=== PATIENT | male | born 1955 | race Caucasian/White ===

== ENCOUNTER 2020-12-27 14:32 | Emergency (ER) | payer SELFPAY ==
--- NOTE | 2020-12-27 14:34 | ED.MALEGU ---
HPI - Male Genitourinary General Chief complaint: Urogenital-Male Stated complaint: STD test Time Seen by Provider: 12/27/20 14:35 Source: patient and RN notes reviewed History of Present Illness HPI Narrative: Patient is 65-year-old male who presents the urgent care with complaints of possible STD. Patient states that he has had unprotected sex with a new partner approximately 1 week ago and within the last 2 days he has had pus from the penis . Patient states the tip of his penis is also sore. Denies any lesions on the penis. Denies of any known contact with STD and has not spoke to his partner regarding his symptoms. Patient also reports of some burning with urination. Denies of any suprapubic pressure, urinary frequency or urgency. States that he has had chlamydia in the past and the symptoms feel about the same . No other acute complaints. No acute distress noted. Patient aware of the plan of care. Some parts of this dictation were generated by voice recognition software and may contain typographical and/or grammatical inaccuracies. Related Data Home Medications Medication Instructions Recorded Confirmed metoprolol tartrate 25 mg PO DAILY 12/27/20 12/27/20 Allergies Allergy/AdvReac Type Severity Reaction Status Date / Time tramadol Allergy Itching Verified 12/27/20 14:51 Review of Systems Review of Systems: CONSTITUTIONAL: Denies fever, chills, or sweats. EYES: Denies visual changes, redness, or discharge. ENT: Denies rhinorrhea, congestion, sore throat, or otalgia. CARDIOVASCULAR: Denies chest pain, palpitations, or edema. RESPIRATORY: Denies cough or dyspnea. GASTROINTESTINAL: Denies abdominal pain, nausea, vomiting, or diarrhea. GENITOURINARY: Reports of penile discharge and dysuria SKIN: Denies rash or itching. MUSCULOSKELETAL: Denies back pain, joint pain, or myalgia. NEUROLOGIC: Denies headache, numbness, or weakness. All other systems reviewed are negative, except as documented in HPI. PMFSH Comments At the time of my signature, I reviewed and agree with the nursing past medical, surgical, social, and family history. There is no relevant family history pertinent to the patient complaint. Exam Narrative: GENERAL: This is a well-nourished, well-developed patient, in no apparent distress. HEAD: normocephalic, atraumatic. EYES: PERRL. Sclera clear/white. Vision is grossly intact. EARS: External ears normal NOSE: External nose normal with no obvious nasal discharge, nares without redness, no rhinorrhea. THROAT: Mucous membranes moist NECK: Neck supple CARDIOVASCULAR: Regular rate and rhythm without murmurs, gallops, or rubs. RESPIRATORY: Clear to auscultation. Breath sounds equal bilaterally. No wheezes, rales, or rhonchi. : Deferred penile exam SKIN: warm, intact with no suspicious lesions or rash, good texture and turgor. NEURO: awake, alert, and oriented to person, place and time. There were no obvious focal neurologic abnormalities. EXTREMITIES: No clubbing, cyanosis, or edema. BACK: Negative bilateral CVA tenderness Course Vital Signs Vital signs: Vital Signs Temperature 98.1 F 12/27/20 14:41 Pulse Rate 81 12/27/20 14:41 Respiratory Rate 20 12/27/20 14:41 Blood Pressure 147/97 H 12/27/20 14:41 Pulse Oximetry 100 12/27/20 14:41 Temperature 98.1 F 12/27/20 14:52 Pulse Rate 81 12/27/20 14:52 Respiratory Rate 20 12/27/20 14:52 Blood Pressure 147/97 H 12/27/20 14:52 Pulse Oximetry 100 12/27/20 14:52 Reviewed-patient is informed that they may have pre-hypertension or hypertension based on a blood pressure reading in the department. I recommend the patient call the primary care provider listed on their discharge instructions or a physician of their choice this week to arrange follow-up for further evaluation of possible pre-hypertension or hypertension. MDM - Male Genitourinary MDM Narrative Medical decision making narrative: Advised the patient to complete
[2020-12-27 14:41] VITALS: BP 147/97; PULSE 81; RESP 20; TEMP 36.7; O2SAT 100
[2020-12-27 14:52] VITALS: BP 147/97; PULSE 81; RESP 20; TEMP 36.7; O2SAT 100
== END 2020-12-27 15:14 | disposition home or self-care (01) ==
PROVIDERS: Emergency Provider Nurse Practitioner Family
DX: R36.9 Urethral discharge, unspecified (principal); I10 Essential (primary) hypertension
CPT/HCPCS: 81003; 87491; 87591; 87661; 99203; G0463

== ENCOUNTER 2020-12-31 19:35 | Emergency (ER) | payer SELFPAY ==
--- NOTE | 2020-12-31 19:39 | ED.MALEGU ---
HPI - Male Genitourinary General Stated complaint: std shot Source: patient and RN notes reviewed Mode of arrival: ambulatory Limitations: no limitations History of Present Illness HPI Narrative: 65-year-old male presents for treatment of gonorrhea. Was seen in this clinic on 12/27/2020 and tested for gonorrhea. Did not choose to receive the ceftriaxone injection at that time, when advised of the positive results he chose to return and receive the treatment. Denies any change in symptoms. Related Data Home Medications Medication Instructions Recorded Confirmed metoprolol tartrate 25 mg PO DAILY 12/27/20 12/27/20 Allergies Allergy/AdvReac Type Severity Reaction Status Date / Time tramadol Allergy Itching Verified 12/31/20 19:43 Review of Systems Review of Systems: CONSTITUTIONAL: Denies malaise, chills, sweats, or fever. GASTROINTESTINAL: Denies abdominal pain, nausea, vomiting, diarrhea, bloody, or mucous stools. GENITOURINARY: Reports dysuria and penile discharge All systems reviewed & are unremarkable except as noted in HPI and below PMFSH Comments At time of signature, agree with nursing past medical, surgical, social and family history. There is no relevant family history pertinent to the presenting complaint Exam Narrative: GENERAL: Well-appearing, well-nourished, and in no acute distress. HEAD: Normocephalic. EYES: PERRLA, conjunctivae clear. NECK: Supple. CHEST: Clear to auscultation. No respiratory distress. HEART: Regular rate and rhythm. SKIN: Warm, dry NEURO: Alert and oriented x3. PSYCH: Normal mood and affect Course Course Emergency Course: Patient is aware of diagnosis, understands and agrees to treatment plan. Anticipatory guidance given. Patient agrees to follow-up as directed and is aware of reasons to seek care at the emergency department. Portions of this record may have been created with voice recognition software Vital Signs Vital signs: Reviewed. MDM - Male Genitourinary MDM Narrative Medical decision making narrative: Exam findings show no acute concerns or changes; patient is non-toxic appearing and is in no distress. Patient is appropriate for outpatient treatment and follow-up. Critical Care Time Critical Care Time Critical Care Time: No Discharge Plan Discharge Clinical Impression: Acute gonorrhea of genitourinary tract Patient Disposition: Home, Self-Care Condition: Stable Instructions: Gonorrhea (ED) Additional Instructions: You have tested positive for gonorrhea, and received treatment through an intramuscular injection. It is very important that you avoid unprotected intercourse during treatment and for 7 days AFTER TREATMENT is complete and until your partner(s) have been treated. Please encourage your partner(s) to seek testing and treatment. Your chlamydia test was negative, ear results for trichomoniasis are still pending. If trichomoniasis is positive you will receive a phone call and additional antibiotic will be sent to your pharmacy. Continue previously prescribed doxycycline until all the pills are gone. When you have been exposed to sexually transmitted infections, it is important that you seek comprehensive testing, since we do not provide testing for all sexually transmitted infections. Some infections can have no symptoms, but cause serious health problems. Contact your health care provider or report to the emergency department if: You have genital swelling or pain, or unusual bleeding. You have joint pain, rash, swollen lymph nodes or night sweats. You are severe abdominal pain. You have a fever. Symptoms do not go away or they get worse even after treatment. You have bleeding or pain during sex. Prescriptions: No Action metoprolol tartrate 25 mg Tablet 25 mg PO DAILY RF: 0 doxycycline monohydrate 100 mg capsule 100 mg PO BID Qty: 20 RF: 0 Follow-up/Referrals: PHYSICIAN,RANGE AIDE [Primary Care Provider] - Time of Dispos
[2020-12-31 19:40] VITALS: BP 162/97; PULSE 87; RESP 18; TEMP 37.1; O2SAT 100
[2020-12-31] MEDS: LIDOCAINE HCL 1% LOCAL INJ 20 ML VIAL INFILTRATE (19:56)
[2020-12-31] MEDS: cefTRIAXone 250 MG VIAL 500 MG IM (19:56)
== END 2020-12-31 20:07 | disposition home or self-care (01) ==
PROVIDERS: Emergency Provider Nurse Practitioner
DX: A54.9 Gonococcal infection, unspecified (principal); I10 Essential (primary) hypertension
CPT/HCPCS: 96372; 99213; G0463; J0696